=== PATIENT | male | born 1955 | race Caucasian/White ===

== ENCOUNTER 2019-12-18 12:40 | Inpatient (IN) | payer OTHER, MEDICAID ==
[~2019-12-18] VITALS: Ht 175.2 cm; Wt 101.2 kg
[2019-12-18 12:46] VITALS: BP 137/92
[2019-12-18 13:34] LABS: BASO % 0.4 % (0.0-1.0); EOS # 0.1 10*3/uL (0.0-0.4); HEMATOCRIT 41.6 % (42.0-52.0); LYMPH # 1.7 10*3/uL (1.3-4.4); MEAN CELL VOLUME 98.1 fl (80.0-94.0); MEAN CORPUSCULAR HGB 31.6 pg (27.0-31.0); MEAN CORPUSCULAR HGB CONC 32.2 g/dl (33.0-37.0); MEAN PLATELET VOLUME 9.6 fl (9.6-12.3); MONO # 0.5 10*3/uL (0.1-1.0); MONO % 6.6 % (3.0-9.0); NEUT # 4.7 10*3/uL (2.3-7.9); NEUT % 66.7 % (47.0-73.0); PLATELET COUNT AUTOMATED 261 10*3/uL (130-400); RED BLOOD COUNT 4.24 10*6/uL (4.50-5.90); RED CELL DISTRI WIDTH 13.3 % (0-14.5)
[2019-12-18 13:49] LABS: ALBUMIN 3.5 gm/dl (3.1-4.5); ALKALINE PHOSPHATASE 99 U/L (45-117); BUN 21 mg/dl (7-24); CHLORIDE 105 mmol/L (98-107); CREATININE 1.06 mg/dL (0.70-1.30); POTASSIUM 3.9 mmol/L (3.5-5.1); SGOT/AST 29 IU/L (3-35); SGPT/ALT 53 U/L (12-78); SODIUM 140 mmol/L (136-145); TOTAL PROTEIN 7.9 gm/dL (6.4-8.2)
[2019-12-18 13:57] LABS: ACETAMINOPHEN (TYLENOL) < 5.0 ug/ml (10-30); ETHYL ALCOHOL < 3.0 mg/dl (<3)
--- NOTE | 2019-12-18 15:47 | NUR ---
PT PROMPTED FOR URINE AND PROVIDED WITH URINAL. PT UNABLE TO URINATE AT THIS TIME.
--- NOTE | 2019-12-18 16:00 | NUR ---
PT AGAIN PROMPTED FOR URINE BUT IS UNABLE TO UNDERSTAND OR COOPERATE. PT WILL BE STRAIGHT CATHED FOR URINE.
[2019-12-18 16:23] LABS: BILIRUBIN NEGATIVE; BLOOD NEGATIVE (NEGATIVE); CLARITY CLEAR (CLEAR); COLOR YELLOW (YELLOW); GLUCOSE NEGATIVE; KETONE TRACE; LEUKO ESTERASE TRACE (NEGATIVE); NITRITE NEGATIVE (NEGATIVE); SPECIFIC GRAVITY > 1.030 (1.001-1.030)
[2019-12-18 16:27] LABS: BACTERIA TRACE; MUCOUS TRACE; RBC 0-2 rbc/hpf (0-2); URINE AMPHETAMINES < 1000 (1000ng/ml); URINE BARBITURATES < 200 (200ng/ml); URINE BENZODIAZEPINES < 200 (200ng/ml); URINE CANNABINOIDS (THC) < 50 (50ng/ml); URINE COCAINE < 300 (300ng/ml); URINE METHADONE < 300 (300ng/ml); URINE OPIATES < 300 (300ng/ml)
[2019-12-18 16:28] LABS: URINE PHENCYCLIDINE < 25 (25ng/ml)
--- NOTE | 2019-12-18 16:35 | NUR ---
PT IN CT AT THIS TIME.
--- NOTE | 2019-12-18 16:40 | NUR ---
CT REQUESTING HELP FOR PT IN CT.
--- NOTE | 2019-12-18 16:47 | NUR ---
CT IS BEING CANCELLED. PT UNABLE TO COOPERATE IN CT. UNABLE TO REMAIN LYING DOWN DUE TO CONFUSION. I SPOKE WITH RN FROM [facility] WHO REPORTS SHE WILL CONTACT DR. BERRY.
--- NOTE | 2019-12-18 16:49 | NUR ---
PT IS BEING PINK SLIPPED.
[2019-12-18] MEDS ORDERED: PACERONE200 MG PO (17:10)
[2019-12-18] MEDS ORDERED: ATORVASTATIN CA80 M1 PO (17:12)
[2019-12-18] MEDS ORDERED: Catapres-Tts 20.2 MG PO (17:13)
[2019-12-18] MEDS ORDERED: DIGOX125 MCG PO (17:14)
[2019-12-18] MEDS ORDERED: ASPIRIN ADULT L81 M1 PO (17:15)
[2019-12-18] MEDS ORDERED: EXELON1 EACH T (17:15)
[2019-12-18] MEDS ORDERED: NATURE'S BLEND F1 MG PO (17:16)
[2019-12-18] MEDS ORDERED: METOPROLOL TART50 M1 PO (17:16)
[2019-12-18] MEDS ORDERED: VENLAFAXINE75 M1 PO (17:17)
[2019-12-18] MEDS ORDERED: VITAMIN B-121000 MC2 PO (17:19)
[2019-12-18] MEDS ORDERED: ZYPREXA10 M1 PO (17:19)
[2019-12-18] MEDS ORDERED: ATIVAN0.5 MG PO (17:21)
[2019-12-18] MEDS ORDERED: DEPAKOTE SPRIN125 MG PO (17:23)
[2019-12-18] MEDS ORDERED: BISACODYL5 MG PO (17:24)
[2019-12-18] MEDS ORDERED: MILK OF MA400 MG/5 M PO (17:25)
--- NOTE | 2019-12-18 17:41 | NUR ---
PT TAKEN TO [facility].
[2019-12-18 17:49] VITALS: BP 154/99
[2019-12-18 17:52] VITALS: BP 154/99
--- NOTE | 2019-12-18 18:01 | NUR ---
NERY GARRETT a 64 year old M admitted via wheel chair from the EMERGENCY ROOM as a PINK SLIP. Arrived on unit at 1738 . ALLERGIES: NKA . Vital signs are: [id number] 154/99. The client IS UNABLE TO sign the following forms D/T COGNITION: Authorization For The Release of Medical Information, Clothing List, Consent to Voluntary Admission and Hospitalization, Consent and Release Forms/Receipt of Rights, Acknowledgement of Advance Directive Information, Behavioral Health Consent Form, and Informed Consent of Medications. Admitted under the services of Dr. JAMAL KNOTT,[facility]. A search was conducted and hazardous articles were removed. Client was oriented to the unit. FRANKI KRUEGER PT ALERT TO SELF ONLY, CONFUSION AND SHORT TERM MEMORY DEFICITS NOTED PER PT BASELINE. PT UNABLE TO PARTICIPATE IN ADMISSION ASSESSMENT, GERIATRIC DEPRESSION SCREENING OR U ADMISSION D/T COGNITION. PT SPEECH IN NONSENSICAL. PT IS UNABLE TO FOLLOW SIMPLE INSTRUCTIONS. PT AMBULATORY THROUGHOUT UNIT, GAIT STEADY. PT REFUSED SKIN ASSESSMENT, UNCOOPERATIVE WITH ASSESSMENT.
--- NOTE | 2019-12-18 18:10 | NUR ---
SPOKE WITH DR CLEMENT RE: MEDICAL MANAGEMENT CONSULT NEEDED PER DR NIELSEN CONSULT UNDER DR. HSU.
[2019-12-18 20:05] VITALS: BP 141/94
--- NOTE | 2019-12-18 20:47 | NUR ---
MEDICAL STUDENT PADMA VIVAR, ON UNIT TO SEE PT FOR MEDICAL CONSULT. STATED HE WOULD UPDATE DR LANDA
--- NOTE | 2019-12-18 21:19 | NUR ---
AND MEDICAL STUDENT PADMA VIVRA ON UNIT TO SEE PATIENT AT THIS TIME. UPDATE PROVIDED.
--- NOTE | 2019-12-18 23:15 | NUR ---
P-CONFUSION I-PROVIDE 1:1 WITH THERAPEUTIC INTERVENTIONS. REORIENT AND PRESENT REALITY. ENCOURAGE MEDICATION COMPLIANCE AND EDUCATE. MONITOR SLEEP. R- PT ALERT TO SELF AT TIMES BUT OTHERWISE APPEARS GROSSLY CONFUSED. PT'S SPEECH IS NONSENSICAL/WORD SALAD WITH FOI IN REGARDS TO "DOORS". NO EXIT SEEKING BEHAVIORS NOTED AT THIS TIME. PT REQUIRES MUCH ENCOURAGEMENT TO TAKE MEDICATIONS WHEN CRUSHED IN PUDDING, REFUSED HS DOSE OF LIPITOR. PT ALSO REFUSED A PRN TYLENOL DESPITE TELLING THIS RN HIS "BACK THROTTLE HURT" WHILE HOLDING HIS LOWER BACK WHEN WALKING. PT UNABLE TO FOLLOW SIMPLE COMMANDS AND UNCOOPERATIVE/REFUSES ANY TYPE OF HOC. NO AGITATION OR AGGRESSION NOTED AT THIS TIME. PT WANDERED AROUND UNIT UNTIL TAKING HIMSELF TO BED, GAIT STEADY. INCONTINENT/CONTINENT OF BOWEL AND BLADDER. PT RESTING QUIETLY WITH HIS EYES CLOSED, RESPIRATIONS EASY AND REGULAR, NO DISTRESS NOTED. P-CONTINUE TO MONITOR MOOD AND BEHAVIORS. MAINTAIN Q 15 MIN CHECKS AND PRN FOR SAFETY.
--- NOTE | 2019-12-19 05:34 | NUR ---
PATIENT OBSERVED ON Q 15 MIN CHECKS TO HAVE SLEPT APPROX 8 HOURS UNINTERRUPTED. NO DISTRESS NOTED.
[2019-12-19 06:48] LABS: ALBUMIN 3.2 gm/dl (3.1-4.5); ALKALINE PHOSPHATASE 89 U/L (45-117); BUN 18 mg/dl (7-24); CHLORIDE 105 mmol/L (98-107); CHOLESTEROL 198 mg/dL (<200); CREATININE 0.94 mg/dL (0.70-1.30); HDL CHOLESTEROL 26 mg/dl (40-60); LDL CHOLESTEROL 148 mg/dL (9-159); POTASSIUM 3.8 mmol/L (3.5-5.1); SGOT/AST 15 IU/L (3-35); SGPT/ALT 41 U/L (12-78); SODIUM 139 mmol/L (136-145); TOTAL PROTEIN 6.9 gm/dL (6.4-8.2); TRIGLYCERIDES 120 mg/dl (<150); VLDL CHOLESTEROL 24 mg/dL (6-40)
[2019-12-19 06:56] LABS: BASO % 0.4 % (0.0-1.0); EOS # 0.1 10*3/uL (0.0-0.4); HEMATOCRIT 37.8 % (42.0-52.0); LYMPH # 1.9 10*3/uL (1.3-4.4); LYMPH % 37.3 % (27.0-41.0); MEAN CELL VOLUME 97.2 fl (80.0-94.0); MEAN CORPUSCULAR HGB 31.4 pg (27.0-31.0); MEAN CORPUSCULAR HGB CONC 32.3 g/dl (33.0-37.0); MEAN PLATELET VOLUME 9.8 fl (9.6-12.3); MONO # 0.4 10*3/uL (0.1-1.0); MONO % 7.9 % (3.0-9.0); NEUT # 2.7 10*3/uL (2.3-7.9); NEUT % 52.2 % (47.0-73.0); PLATELET COUNT AUTOMATED 253 10*3/uL (130-400); RED BLOOD COUNT 3.89 10*6/uL (4.50-5.90); RED CELL DISTRI WIDTH 13.2 % (0-14.5); WHITE BLOOD COUNT 5.1 10*3/uL (4.8-10.8)
[2019-12-19 06:58] LABS: VALPROIC ACID (DEPAKENE) 40.7 ug/ml (50-100)
[2019-12-19 07:54] LABS: VITAMIN D, 25-HYDROXY 18.2 ng/mL (30-100)
[2019-12-19 07:57] VITALS: BP 163/87
--- NOTE | 2019-12-19 08:30 | NUR ---
Treatment Plan meeting was held this a.m. with Dr. Paez via telephone, FRIEND OF THE COURT Mar RN, AT, EXCEL VBA DEVELOPER-S and Train Gate Attendant in attendance. Plan for discharge at the end of next week. Pt. came to [facility] from [place]. Will reach out to facility today to discuss discharge planning.
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
--- NOTE | 2019-12-19 10:43 | NUR ---
DR HSU ON UNIT TO ASSESS PATIENT, UPDATE PROVIDED.
--- NOTE | 2019-12-19 11:46 | NUR ---
AM GROUP PT DID NOT ATTEND MORNING GROUP THERAPY. PT WAS IN BED RESTING. UNABLE TO ASSESS PT AT THIS TIME, WILL ATTEMPT TOMORROW MORNING.
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
--- NOTE | 2019-12-19 15:33 | NUR ---
PATIENT HAS BEEN ASLEEP IN BED ALL DAY. PATIENT REFUSES TO GET UP, REFUSES TO TAKE HIS MEDICATIONS AND REFUSES TO PARTICIPATE IN AN ASSESSMENT. WILL REATTEMPT.
--- NOTE | 2019-12-19 15:58 | NUR ---
PM GROUP PT DID NOT ATTEND AFTERNOON GROUP THERAPY. PT WAS IN BED RESTING.
--- NOTE | 2019-12-19 22:04 | NUR ---
P-CONFUSION I-PROVIDE 1:1 WITH THERAPEUTIC INTERVENTIONS. REORIENT AND PRESENT REALITY. ENCOURAGE MEDICATION COMPLIANCE AND EDUCATE. MONITOR SLEEP. R- PT INTERMITTENTLY ALERT TO SELF BUT OTHERWISE APPEARS GROSSLY CONFUSED. PT ISOLATIVE TO ROOM AND BED SINCE BEGINNING OF SHIFT. PT REFUSED TO PARTICIPATE IN ASSESSMENT AND ALSO REFUSED HS SKIN CHECK AND BLOOD PRESSURE. PT'S SPEECH REMAINS NONSENSICAL/WORD SALAD. NO EXIT SEEKING BEHAVIORS NOTED AT THIS TIME. PT REQUIRES MUCH ENCOURAGEMENT TO TAKE MEDICATIONS WHEN CRUSHED IN PUDDING, UNABLE TO EDUCATE DUE TO COGNITION. PT UNABLE TO FOLLOW SIMPLE COMMANDS WHEN PROVIDED BY STAFF, REFUSES HOC. NO AGITATION OR AGGRESSION NOTED AT THIS TIME. PT AMBULATORY WITH A STEADY GAIT, CONTINENT/INCONTINENT OF BOWEL AND BLADDER. PT RESTING QUIETLY WITH HIS EYES CLOSED, RESPIRATIONS EASY AND REGULAR, NO DISTRESS NOTED. P-CONTINUE TO MONITOR MOOD AND BEHAVIORS. MAINTAIN Q 15 MIN CHECKS AND PRN FOR SAFETY.
--- NOTE | 2019-12-20 05:37 | NUR ---
PATIENT OBSERVED ON Q 15 MIN CHECKS TO HAVE SLEPT APPROX 11 HOURS THIS SHIFT, WITH X2 BRIEF AWAKENINGS TO USE THE RESTROOM. NO DISTRESS NOTED.
--- NOTE | 2019-12-20 05:54 | NUR ---
24 HOUR CHART CHECK COMPLETED.
--- NOTE | 2019-12-20 06:52 | NUR ---
PATIENT CONTINUES TO REFUSE HOC THIS AM, UNRECEPTIVE TO REDIRECTION OR EDUCATION AT THIS TIME.
[2019-12-20 07:53] VITALS: BP 155/79
--- NOTE | 2019-12-20 09:06 | NUR ---
SALIMA BETANCOURT ON UNIT TO ASSESS PATIENT, UPDATE PROVIDED.
--- NOTE | 2019-12-20 09:15 | NUR ---
PATIENT REFUSES CARE. PATIENT REFUSES MEDICATION. PATIENT IS CONFUSED AND APPEARS TO BE PARANOID WHEN STAFF WALKED AROUND HIS ROOM. PATIENT HAS ALSO REFUSED ASSESSMENTS. WILL REATTEMPT.
--- NOTE | 2019-12-20 10:30 | NUR ---
Treatment Plan meeting was held this a.m. with Dr. Paez, RN, AT and Photocopy Operator. Plan for discharge Next Week. Pt. will return to [place]. Updates have been faxed. Facility is looking into alternate placement for pt. due to behaviors.
--- NOTE | 2019-12-20 11:46 | NUR ---
AM GROUP PT DID NOT ATTEND MORNING GROUP THERAPY. PT WAS IN BED RESTING.
--- NOTE | 2019-12-20 13:00 | NUR ---
PATIENT CONTINUES TO REFUSE CARE, MEDS AND ASSESSMENTS, FOOD AND DRINK. PATIENT REPEATEDLY STATES "NO THANK YOU". WILL CONTINUE TO ENCOURAGE PO INTAKES AND MED COMPLIANCE.
--- NOTE | 2019-12-20 15:00 | NUR ---
PATIENT STILL IN BED. PATIENT HAS NOT GOTTEN OUT OF BED OTHER THAN TO USE THE RESTROOM TODAY. PATIENT HAS NOT DRANK OR EATEN TODAY. PATIENT CONTINUES TO REFUSE FODO/FLUIDS, MEDICATIONS AND ASSESSMENTS. WILL REATTEMPT.
--- NOTE | 2019-12-20 15:47 | NUR ---
PM GROUP PT DID NOT ATTEND AFTERNOON GROUP THERAPY. PT WAS IN BED RESTING.
--- NOTE | 2019-12-20 23:35 | NUR ---
Patient alert to person only with confusion noted. Patient refusing to interact and refused any assessments to be done. Patient seems paranoid with staff coming near patient. Patient refused HS medications. Will reevaluate later in the shift. Q 15 minute safety checks continued and maintained. See [facility] flowsheet for further documentation.
--- NOTE | 2019-12-21 05:23 | NUR ---
Patient slept approx. 4 hours with a few awakenings. Q 15 minute safety checks continued and maintained.
--- NOTE | 2019-12-21 07:43 | NUR ---
Patient resting quietly with no c/o discomfort. Respirations easy and regular. Pt refuses to allow vital signs to be assessed despite multiple attempts/education. ANTONIO BLACK
--- NOTE | 2019-12-21 08:30 | NUR ---
Treatment Plan meeting was held this a.m. with Dr. Paez via telephone, NOLAN Manuel RN, STOCK PLAN ADMINISTRATOR-S and Mop Maker in attendance. Plan for discharge Next week. Pt. will return to [place] at discharge at this point. Facility has been unsuccessful at securing alternate Placement.
--- NOTE | 2019-12-21 12:15 | NUR ---
SALIMA BETANCOURT NP ON UNIT TO ASSESS PT.
--- NOTE | 2019-12-21 14:13 | NUR ---
Clinical Updates sent to [facility] attn: Ruth. Spoke with Velma Javier Clinical Liason via telephone, Provided with updates and discharge plans for next week.
--- NOTE | 2019-12-21 16:30 | NUR ---
Shift chart check completed.
--- NOTE | 2019-12-21 18:00 | NUR ---
P: ISOLATIVE, MUTE WITH FLAT AFFECT, HOPELESS/HELPLESS, POOR APPETITE, CONFUSION WITH POOR MEMORY DEFICITS. I: ONE ON ONE FOR EMOTIONAL SUPPORT, TALKING TO IN QUIET ENVIRONMENT IN ROOM, ENCOURAGE MEAL INTAKES. R: MEAL INTAKES EFFECTIVE. PATIENT ASSIST WITH MEALS, ONE ASSIST IN ROOM. PATIENT ATE 100% OF MEALS WITH GOOD INTAKES. PATIENT CONTINUES TO BE ISOLATIVE AND REFUSES TO LEAVE ROOM, REPOSITIONS SELF FREQUENTLY IN BED. PATIENT ALLOWED NURSE TO ASSESS VITAL SIGNS AND GIVE PARTIAL BED BATH. MEDICATION COMPLAINT. Q 15 MINUTE SAFETY CHECKS MAINTAINED. 2 PERSON ASSIST WITH ACTIVITIES OF DAILY LIVING DUE TO PAST AGGRESSION. CONTINENT AND INCONTINENT OF BOWEL AND BLADDER. ONE ASSIST FOR MEALS, IMPROVEMENT NOTED WITH MEAL INTAKES. P: CONTINUE TO MONITOR MOOD, FOR AGGRESSION, MEAL INTAKES AND MEDICATION COMPLAINCE. PROVIDE ONE ON ONE, REDIRECTION/ORIENTTION NEEDED.
[2019-12-21 20:00] VITALS: BP 115/67
--- NOTE | 2019-12-21 21:45 | NUR ---
Patient alert to person only with confusion noted. Patient refusing to interact and refused any assessments to be done. Patient isolative to his room this evening. Patient refused HS medications. Will reevaluate later in the shift. Q 15 minute safety checks continued and maintained. See [facility] flowsheet for further documentation.
--- NOTE | 2019-12-22 04:45 | NUR ---
Patient got out of bed and walked out of his room and walked across the hallway into another patient's room,a female's room. Nursing staffed attempted to redirect patient back to his room but was unsuccessful. Patient laid down in empty bed in the female patient's room. Nursing staff attempted multiple times to talk with patient in order to redirect him back to his room but patient answered with non sensical words and also word salad. Patient was constantly pointing at female patient and saying non sensical words and staring at female patient. Nursing staff stayed with this patient while another staff member switched his bed out of his room and moved him while he was in the empty bed over to his own room. The floor in patient's room had to be cleaned due to urine all over floor in room. Will continue to monitor moods/behaviors.
--- NOTE | 2019-12-22 05:38 | NUR ---
Patient slept approx. 8 hours with a few awakenings throughout shift. Q 15 minute safety checks continued and maintained.
--- NOTE | 2019-12-22 08:40 | NUR ---
PT REFUSED AM VITALS X MULTIPLE ATTEMPTS.
[2019-12-22 10:22] VITALS: BP 121/56
--- NOTE | 2019-12-22 11:45 | NUR ---
NASAL SWAB COLLECTED FOR COVID 19, TOLERATED WELL AND SENT TO LAB.
--- NOTE | 2019-12-22 12:30 | NUR ---
P: CONFUSION, PSYCHOMOTOR RETARDATION I: ONE ON ONE IN QUIET ENVIRONMENT, CHANGE OF ENVIROMENT AND REDIRECTION. R: EFFECTIVE. PATIENT IS ALERT TO SELF WITH CONFUSION. LONG/SHORT TERM MEMORY DEIFICTS. NO VOICE STATEMENT OF HI/SI OR PAIN, NO RESPONSE TO INTERNAL STIMULI OBSERVED. PATIENT OUT OF ROOM TODAY ASSISTED TO QUIET ROOM TO EAT BREAKFAST THIS MORNING. PATIENT REFUSED TO EAT OR DRINK WITH MULITPLE ATTEMPTS. PATIENT RECIEVED INVEGA SUSTENNA 234MG IM TO RIGHT DELTOID WITH NO RESPONSE/REACTION NOTED, TOLERATED WELL. AT LUNCH PATIENT AT FIRST REFUSED MEAL. PATIENT STOOD UP OUT OF NITHYA CHAIR WITH ASSISTANCE. PATIENT'S ROOM WAS CHANGED TO 309. PATIENT WALKED DOWN AMARO WITH 2 STAFF ASSIST THEN TO ROOM. PATIENT SAT IN CHAIR AND 1 PERSON ASSIST WITH MEALS. PATIENT TOOK MORNING MEDICATIONS. INTAKE WAS 100% WITH 720CC FLUIDS. PATIENT CONTINUES TO BE 1-2 PERSON ASSIST WITH ACTIVITIES OF DAILY LIVING, INCONTINENT OF BLADDER. MEDICATION COMPLAINT. Q 15 MINUTE SAFETY CHECKS MAINTAINED. P: CONTINUE TO MONITOR FOR EXIT SEEKING BEHAVIORS AND AGGRESSION. PROVIDE ONE ON ONE, REDIRECTION, ENCOURAGEMENT OF INTAKES AND MEDICINE.
--- NOTE | 2019-12-22 19:50 | NUR ---
NOTIFIED YEIMI WEINSTEIN NP OF INCREASED RIGHT ARM TREMORS. CLIENT APPEARS TO HAVE NO KNOWLEDGE OF THEM. REMAINS MUTE WHEN SPOKEN TO. ORDERS TO CHANGE DEPAKOTE TO SPRINKLES AND GIVE COGENTIN 2MG IM NOW.
--- NOTE | 2019-12-22 20:28 | NUR ---
CLIENT REFUSES ALL PO MEDICATIONS AT THIS TIME. WILL CONTINUE TO TRY TO GET HIM TO TAKE THEM COGENTIN 2MG IM GIVEN RT DELTOID. TOLERATED WELL.
--- NOTE | 2019-12-22 21:27 | NUR ---
CONTINUES TO SPIT OUT ANY MEDICATION GIVEN. REMAINS MUTE EXCEPT TO OCCATIONALLY COUNT 1,2 WHAT
--- NOTE | 2019-12-22 22:14 | NUR ---
OFFERED TO TAKE CLIENT TO BED. CLIENT APPEARS TO LOOK STRAIGHT THROUGH ME. DUE TO AGGRESSIVE OUTBURSTS WILL NOT PUSH CLIENT AND AWAIT HIM TO STAND UP
--- NOTE | 2019-12-23 01:50 | NUR ---
REMAINS AWAKE IN DININGROOM. NO RESPONCE WHEN ASKED IF HE WOULD LIKE TO LAY DOWN. WILL CONTINUE TO MONITOR
--- NOTE | 2019-12-23 06:29 | NUR ---
HAS NOT SLEPT ALL NIGHT. MUTE TO ALL QUESTIONS ASKED OF HIM. COLOR PALE SKIN COOL TO TOUCH. DECREASE TREMORS NOTED IN UPPER BODY.
[2019-12-23 08:00] VITALS: BP 97/48
--- NOTE | 2019-12-23 09:37 | NUR ---
P: WITHDRAWN, MUTE WTIH FLAT AFFECT. I: ONE ON ONE AND REORIENTATION/REDIRECTION PROVIDED R: PATIENT REMAINS MUTE WHEN CONVERSATING WITH PATIENT. PATIENT AT 50% OF MEAL WITH 480CC INTAKES. PATIENT REMAINS SITTING IN DINING ROOM CHAIR FROM LAST NIGHT, MAKE FREQUENT REPOSITION, WILL STAND UP THEN SIT BACK DOWN. PATIENT IS ALERT TO SELF AND HANDS ON CARE WITH CONFUSION. LONG/SHORT TERM MEMORY DEFICITS. NO VOICED STATEMENTS OF HI/SI OR PAIN. NO RESPONSE TO INTERNAL STIMULI OBSERVED. MEDICATION COMPLAINT. Q 15 MINUTE SAFETY CHECKS PER POLICY. 1-2 PERSON ASSIST WITH ACTIVITIES OF DAILY LIVING, CONTINENT/INCONTINENT OF BOWEL AND BLADDER. SET UP FOR MEALS, INTAKES ARE GOOD SO FAR TODAY WITH ONE ASSIST. NO AGGRESSION OBSERVED. P: CONTINUE TO MONITOR FOR MOOD, AGGRESSION. MEDICATION COMPLAINCE AND MEAL INTAKES. PROVIDE ONE ON ONE FOR EMOTIONAL SUPPORT, REDIRECTION/ORIENTATION NEEDED.
[2019-12-23 20:00] VITALS: BP 136/69
--- NOTE | 2019-12-23 20:20 | NUR ---
DRANK 3/4 OF MILK SHAKE WITH MEDICATIONS. INCONTINENT OF LARGE AMOUNT URINE. CLEANED UP AND BEDDING CHANGED..SLIGHTLY MORE COOPERATIVE AT THIS TIME. STARTED TO GET AGGRESSIVE BUT STOPPED WHEN REDIRECTED. MOSTLY MUTE DURING ASSESSMENT. WILL CONTINUE TO MONITOR FOR CHANGES IN MOOD/BEHAVIOR AND Q15 MIN AND PRN FOR SAFETY
--- NOTE | 2019-12-24 03:40 | NUR ---
24 HR chart check completed.
--- NOTE | 2019-12-24 06:23 | NUR ---
SLEPT WELL PAST 2200PM. REFUSED TO ALLOW STAFF TO TURN HIM
[2019-12-24 08:00] VITALS: BP 128/79
--- NOTE | 2019-12-24 08:30 | NUR ---
DR. BOURNE ON UNIT TO ASSESS PATIENT.
--- NOTE | 2019-12-24 10:47 | NUR ---
Treatment Plan meeting was held this a.m. with Dr. Paez, NOLAN Manuel, RN, AT, FRIT BURNER-S and Advocacy Director in attendance. Plan for discharge at the end of the week. Pt. will return to [place] at discharge.
--- NOTE | 2019-12-24 11:19 | NUR ---
Clinical Updates faxed to [facility] Attn: Ruth [phone].
--- NOTE | 2019-12-24 11:38 | NUR ---
DR. HINKLE NOTIFIED OF PODIATRY CONSULT FOR NAIL CARE.
--- NOTE | 2019-12-24 11:49 | NUR ---
PATIENT ASSISTED OUT OF BED VIA ROBERT LIFT WITH 3 ASSIST. OLAF CARE PROVIDED. PATIENT MUTE, WITH EYE CLOSED, COOPERATIVE WITH HANDS ON CARE AND ABLE TO DO COMPLETE SKIN ASSESSMENT. LEFT ANKLE AREA 1.0X1.0X0, NOT OPEN, INTACT, BLACK IN COLOR, NO COMPLAINTS OF PAIN. HERMILA AND CORINA FROM WOUND CARE NOTIFIED. CORINA CAME TO UNIT TO ASSESSES THE AREA. DIRECTOR OF MARKET ANALYSIS, CADDIE NOTIFIED. LEFT MESSAGE FOR DAUGHTER TO CALL BACK. DR. KERNS NOTIFIED OF AREA AND FOR TREATMENT ORDERS.
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
--- NOTE | 2019-12-24 15:33 | NUR ---
PM GROUP PT DID NOT ATTEND AFTERNOON GROUP THERAPY. PT WAS RESTING IN A NITHYA CHAIR IN FRONT OF NURSES STATION.
--- NOTE | 2019-12-24 18:38 | NUR ---
Shift chart check completed.
--- NOTE | 2019-12-24 19:50 | NUR ---
24 HR chart check completed.
[2019-12-24 20:00] VITALS: BP 112/67
[2019-12-24 21:40] VITALS: BP 112/67
--- NOTE | 2019-12-24 21:48 | NUR ---
PT REFUSED TO HAVE PULSE OXIMETRY TAKEN.
--- NOTE | 2019-12-24 21:59 | NUR ---
P-CONFUSED, IRRITABLE WITH HOC, SELECTIVELY MUTE. I-REDIRECTED, OFFERED TOILETING, ASSITED TO BED. R-RESISTANT WITH INTERVENTIONS. ACCEPTED ASSITANCE TO BED. ALERT TO SELF. REFUSED MEDIATIONS. REFUSED SNACK. P-WILL CONTINUE TO REORIENT, REDIRECT AND ASSIST WITH ADLS NEEDED. WILL CONTINUE TO ENCOURAGE MEDICATION COMPLIANCE. WILL MONITOR MOODS AND BEHAVIORS.
--- NOTE | 2019-12-25 05:07 | NUR ---
PT SLEPT 5 HOURS WITH INTERMITTENT AWAKENINGS.
--- NOTE | 2019-12-25 06:00 | NUR ---
Patient out of bed and walking down hallway slightly unsteady gait. Staff following patient and attempting to redirect patient about safety. Patient saying "Fuck off,you piece of shit." to staff multiple times. Patient continued to walk down hallway to double doors ignoring staff's redirection. Security notified and 2 security guards came and assisted patient to [facility]. Patient resistive with staff and security. Staff managed to change incontinent brief with 5 staff assisting including security.
[2019-12-25 07:48] VITALS: BP 132/98
--- NOTE | 2019-12-25 08:30 | NUR ---
Treatment Plan meeting was held this a.m. with Dr. Paez via telephone, MILLINERY BLOCKER Mar, RN, AT, PARKING OFFICER-S and Drill Press Set Up Operator Radial in attendance. Plan for discharge Next Week. Pt. will return to [place].
--- NOTE | 2019-12-25 08:30 | NUR ---
DR BOURNE ON UNIT TO ASSESS PATIENT, UPDATE PROVIDED.
--- NOTE | 2019-12-25 11:41 | NUR ---
AM GROUP PT WAS PRESENT FOR MORNING GROUP THERAPY SITTING UPRIGHT IN A NITHYA CHAIR WITH A MAGAZINE ON THE TRAY. PT EYES WERE CLOSED AND APPEARED TO BE SLEEPING. PT WAS NOTED TO BE SCOOTING BACKWARDS IN THE CHAIR. PT EXHIBITED NO ADVERSE BEHAVIORS WHILE IN GROUP
--- NOTE | 2019-12-25 12:59 | NUR ---
PATIENT RECIEVED INVEGA SUSTENNA 156MG IM IN RIGHT DELTOID.
--- NOTE | 2019-12-25 14:26 | NUR ---
PHYSICAL THERAPY Physical Therapy evaluation completed on 3N with full evaluation to follow. Moderate complexity skilled PT evaluation per chart review and evaluation, [address]. Recommend physical therapy per plan of care and return to [facility] upon discharge. Thank you for this referral. Elizabeth Downey,PT,DPT
--- NOTE | 2019-12-25 14:26 | NUR ---
Occupational Therapy evaluation completed on three with full evaluation to follow. Recommend occupational therapy per plan of care and return to [facility] will follow-up OT as indicated upon discharge. Thank you for this referral. Mena Domingo, OTR/L
--- NOTE | 2019-12-25 14:48 | NUR ---
DR HINKLE, PODIATRY ON UNIT TO CUT PATIENTS TOENAILS.
--- NOTE | 2019-12-25 15:34 | NUR ---
Shift chart check completed.
--- NOTE | 2019-12-25 15:37 | NUR ---
PM GROUP PT DID NOT ATTEND AFTERNOON GROUP THERAPY. PT WAS IN BED RESTING.
--- NOTE | 2019-12-25 18:47 | NUR ---
P: CONFUSION, ISOLATIVE/WITHDRAWN AND MUTE I: ONE ON ONE WHILE PROVIDING CARE, ASSIST PATIENT INTO GROUP TO PARTICIPATE, ENCOURAGE MEAL INTAKE AND MEDICATION COMPLAINCE. R: INEFFECTIVE. PATEINT IS SELF WITH HOC, LONG/SHORT TERM MEMORY DEFICITS. NO VOICED STATEMENTS OF HI/SI OR PAIN. NO RESPONSE TO INTERNAL STIMULI. NO AGGRESSION THIS SHIFT. Q 15MINUTE SAFETY CHECKS. DID NOT TAKE MORNING MEDICATIONS. DID NOT PARTICIPATE IN GROUP SESSSION. 3 PERSON ASSIST WITH ADL'S, INCONTINENT OF BOWEL AND BLADDER. SET UP FOR MEALS AND ASSIST NEEDED. P: MONTIOR FOR AGGRESSION, EXIT SEEKING, MEAL INTAKES AND MEDICATION COMPLIANCE. PROVIDE ONE ON ONE, ENCOURAGE GROUP SESSION, MEAL INAKES AND MEDICATIONS.
--- NOTE | 2019-12-25 21:06 | NUR ---
24 HR chart check completed.
--- NOTE | 2019-12-25 21:40 | NUR ---
PATIENT CLIMBING OUT OF BED WITH UNSTEADY GAIT AND WEARING BILATERAL HEEL PROTECTORS WHILE AMBULATING IN HALLWAY. PATIENT UNREDIRECTABLE AT THIS TIME. PATIENT ATTEMPTING TO STRIKE OUT AND PUSHING ON NURSING STAFF IN HALLWAY ON UNIT. PATIENT ATTEMTPING TO GO IN PEERS ROOM. PATIENT USING VULGAR LANGUAGE IN HALLWAY. SECURITY ON UNIT X 2 TO HELP REDIRECT PATIENT. ALL NONPHARMACOLOGICAL INTERVENTIONS ATTEMPTED WITH UNSUCCESSFUL RESULTS. DR BERRY CALLED AND UPDATED ABOUT PATIENT BEHAVIORS. DR BERRY WITH NEW ORDER FOR ATIVAN 2MG PO OR IM Q4 PRN FOR ANXIETY. ATIVAN IM ADMINISTERED IN LEFT DELTOID. ATIVAM IM EFFECTIVE AT THIS TIME. PATIENT SITTING IN DINING AREA WATCHING TELEVISION AT THIS TIME.
--- NOTE | 2019-12-25 22:16 | NUR ---
P-AGITATED, AGGRESSIVE, CONFUSION I-REDIRECTION WITH 1:1 THERAPEUTIC INTERVENTIONS AND PRESENT REALITY. EDUCATE AND ENCOURAGE MEDICATION COMPLIANCE R-PATIENT NONCOMPLIANT WITH MEDICATON AT HS. PATIENT REFUSED NOURISHMENT AND FLUIDS AT HS. PATIENT ISOLATIVE IN DINING AREA WITH PEERS AND NURSING STAFF. PATIENT AGGRESSIVE AND AGITATED WITH NURSING STAFF. PATIENT WITH VULGAR LANGUAGE WITH NURSING STAFF.SECURITY ON UNIT X 2. ATIVAN IM ADMINISTERED WITH EFFECTIVE RESULTS. PATIENT WITH NO HALLUCINATIONS OR DELUSIONS. PATIENT WITH NO HOMICIDAL OR SUICIDAL IDEATIONS. P-CONTINUE TO ENCOURAGE MEDICATION COMPLIANCE, CONTINUE TO PRESENT REALITY, ENCOURAGE GROUP THERAPY WHILE AWAKE
--- NOTE | 2019-12-26 05:51 | NUR ---
PT SLEPT 2 HOURS UNITERRUPTED THROUGHOUT SHIFTS. Q 15 MIN CHECKS MAINTAINED.
--- NOTE | 2019-12-26 07:00 | NUR ---
OT NOTE Prior to coming to the floor spoke with nurse Lindsey and reported that therapy was coming to treat this pt. Nurse gave approval. Upon arrival pt was sitting semi reclined in the nikolas chair in the dining leger asleep. Attempted to awaken pt with verbal and tactile stimuli however pt would not stay aroused. Not appropriate for therapy at this time. Will check back at a later time/date and continue with POC as able. TONEY Ayala/Manuel
[2019-12-26 07:39] VITALS: BP 132/78
--- NOTE | 2019-12-26 07:45 | NUR ---
PHYSICAL THERAPY Patient was semi reclined in activity room Tisha chair upon therapist arrival this am and unable to respond to simple commands, including both verbal / tactile cueing. Patient not appropriate at this time for treatment and will continue per POC as able. Getachew Stallings, STATE [address]HW[address] POLICE OFFICER
--- NOTE | 2019-12-26 08:56 | NUR ---
DR BOURNE ON UNIT TO ASSESS PATIENT, UPDATE PROVIDED.
--- NOTE | 2019-12-26 10:48 | NUR ---
Treatment Plan meeting was held this a.m. with NOLAN Manuel, RN, AT, MARK-S and Amusement Machine Mechanic. Plan for discharge Next Week. Pt. will return to [place] at discharge.
--- NOTE | 2019-12-26 11:33 | NUR ---
AM GROUP PT DID NOT ATTEND MORNING GROUP THERAPY. PT WAS IN A QUIET ROOM FOR OBSERVATION.
--- NOTE | 2019-12-26 13:35 | NUR ---
PHYSICAL THERAPY Patient seen this pm for therapy visit and was sitting up in activity room Tisha chair upon therapist arrival. Patient identified by name / on wristband as patient was pretty much non verbal most of the visit. OT assistant department manager was also present this session for observation as patient performed sit to stand transfer at handrail in hallway, MIN A x 2 with B UE support. Patient tolerated < 1 minute static stand prior to ambulating SAND CONTROL WORKER/MIN, 45'x 1 to bathroom, demonstrating slow, waddling gait pattern. Patient needed v/c to widen MELVI with increased stride and increased focus on task. Patient remained in bathroom with [facility] staff for patient care and will continue per POC as tolerated. Total treatment time 16 minutes. Getachew Stallings, SELLING SPECIALIST
--- NOTE | 2019-12-26 13:38 | NUR ---
OT NOTE Upon arrival pt was sitting up in nikolas chair in dining leger agreeable to 20 minute OT session. Identified by name and date of with no complaints. Pt wheeled to hallway. Sit-stand at hallway hand rail Lisa with HH. Functional mobility from hand rails to bedroom bathroom Lisa with HH. when attempting toilet transfer pt became agitated with hands on care requiring max x3 assist for stand pivot transfer and for clothing management/hygiene due to urinary incontinence. Stand-pivot back to nikolas chair maxA x3. Pt wheeled back to dining leger with alarm on lap tray attched and MHW present. Continue POC when able. YARI Be/TONEY Tamayo/Manuel
--- NOTE | 2019-12-26 15:36 | NUR ---
PM GROUP PT WAS PRESENT FOR AFTERNOON GROUP THERAPY SITTING IN A NITHYA CHAIR SLEEPING. PT DID NOT WAKE DURING GROUP
--- NOTE | 2019-12-26 17:09 | NUR ---
P- CONFUSED. MEDICATION NONCOMPLIANT. AGGRESSIVE WITH HANDS ON CARE. MOOD APPEARS DEPRESSED, FLAT AFFECT, SELECTIVELY MUTE. I- ORIENTATION, MOOD AND BEHAVIORS ASSESSED. ASSESSED PT FOR SI/HI, INTENT OR PLAN. ASSESSED PT FOR S/S HALLUCINATIONS, PARANOIA AND/OR DELUSIONS. MEDICATIONS ADMINISTERED PER PHYSICIAN'S ORDERS. ASSISTANCE WITH ADL CARE PROVIDED NEEDED. ENCOURAGED PT TO ATTEND AND PARTICIPATE IN [facility] GROUPS AND ACTIVITIES. R- PT IS ALERT AND ORIENTED TO SELF ONLY, OTHERWISE CONFUSED. ST/LT MEMORY GAPS NOTED. RESPS EASY AND EVEN ON ROOM AIR. MOOD APPEARS DEPRESSED, FLAT AFFECT. PT IS SELECTIVELY MUTE, VERY MINIMAL VERBAL INTERACTIONS THIS SHIFT. NO VOICED SI/HI, INTENT OR PLAN. NO S/S HALLUCINATIONS NOTED. NO PARANOIA OR DELUSIONS NOTED. PT MEDICATION NONCOMPLIANT WITH AM MED PASS. OPAL UPDATED. STATED TO REATTEMPT MORNING MEDS AT LUNCH TIME. PT DID TAKE MORNING MEDS WITH LUNCH. PT BECOMES AGGRESSIVE WITH HANDS ON CARE. PT VERY DIFFICULT TO REDIRECT PT DOES NOT ENGAGE IN CONVERSATION OR FOLLOW VERBAL COMMANDS APPROPRIATELY. P- PLAN TO CONTINUE CURRENT TREATMENT, CONTINUE TO MONITOR MOOD AND BEHAVIORS, PROVIDE APPROPRIATE REORIENTATION AND REDIRECTION NEEDED. CONTINUE TO ENCOURAGE MEDICATION COMPLIANCE WELL GROUP ATTENDANCE AND PARTICIPATION.
[2019-12-26 19:35] VITALS: BP 138/81
--- NOTE | 2019-12-26 20:20 | NUR ---
MIXED MEDICATION IN SMALL VANILA/ENSURE SHAKE. DRANK ALITTLE OVER 03/31. CONTINUEING TO PROVIDE DRINKS
--- NOTE | 2019-12-26 21:20 | NUR ---
INCONTINENT OF URINE AND SMEAR BM. CLEANED UP AND CHANGED WITH ASSIST OF 4. CLIENT REFUSES TO STAND OR ASSIST.
--- NOTE | 2019-12-26 22:19 | NUR ---
REFUSES ORAL CARE
--- NOTE | 2019-12-27 00:22 | NUR ---
24 HR chart check completed.
--- NOTE | 2019-12-27 05:40 | NUR ---
SLEPT APPROX 3 HOUR. INTERMITTENT PERIODS OF RESTLESSNESS.
--- NOTE | 2019-12-27 07:39 | NUR ---
Patient resting quietly with no c/o discomfort. Respirations easy and regular. Vital signs stable. No overt distress. ANTONIO BLACK
[2019-12-27 07:50] VITALS: BP 135/79
--- NOTE | 2019-12-27 07:54 | NUR ---
OT NOTE Prior to session therapist called U and talked to nurse Shadia and got permission to treat pt. SECURITIES SUPERVISOR and nursing both present for observation only. Upon arrival pt was sitting in nikolas chair in dining leger agreeable to 15 minute OT session. Pt wheeled to hallway hand rail, sit-stand attempted requiring maxA x3 however, pt was only able to coplete 25% of transfer before sitting. Pt returned to nikolas chair, wheeled back to dining leger with alarm and tray table attached and MHW present. Throughout session pt was nonverbal with poor carry over for command follow. Continue with POC when able. YARI Be/TONEY Tamayo/Manuel
--- NOTE | 2019-12-27 08:00 | NUR ---
PHYSICAL THERAPY Patient seen this am for therapy visit and was sitting up in activity room Tisha chair upon therapist arrival. Patient identified by name / and was joined by OT employment legal assistant this session. Patient was non verbal this morning and needed multiple verbal / tactile cues to complete all task. Patient demonstrated increased difficulty following simple commands while transfering sit to stand at handrail, MAX A x 3 with B UE support. Patient unable to fully stand upright, tolerating only 10-15 seconds static stand each trial. Patient was able to keep his eyes open most of the transfer attmepts, however with only a "blank" stare. Patient returned to his Tisha chair and remained at table in activity room with body alarm, lap tray, under [facility] staff Supervision. Will continue per POC as tolerated, total treatment time 12 minutes. Getachew Stallings, DELINQUENT TAX COLLECTOR
--- NOTE | 2019-12-27 09:00 | NUR ---
Treatment Plan meeting was held this a.m. with Dr. Paez, RN, AT, EMPLOYMENT DIRECTOR-S and Early Childhood Educator Aide. Plan for discharge Next Week. Pt. will return to [place] at discharge.
--- NOTE | 2019-12-27 11:38 | NUR ---
AM GROUP PT WAS PRESENT FOR MORNING GROUP THERAPY SITTING IN A NITHYA CHAIR AT A TABLE WITH PEERS. PT WAS SLEEPING AND DID NOT WAKE DURING GROUP THERAPY.
--- NOTE | 2019-12-27 12:00 | NUR ---
Spoke with Velma Javier at [facility] who has requested an expert Eval and Competency Evaluation while here so the Facility can pursue Guardianship upon return to facility.
--- NOTE | 2019-12-27 14:52 | NUR ---
P- CONFUSED, MEDICATION NONCOMPLIANCE, SELECTIVELY MUTE I- ORIENTATION, MOOD AND BEHAVIORS ASSESSED. ASSESSED PT FOR SI/HI, INTENT OR PLAN. ASSESSED PT FOR S/S HALLUCINATIONS, PARANOIA AND/OR DELUSIONS. MEDICATIONS ADMINISTERED PER PHYSICIAN'S ORDERS. ASSISTANCE WITH ADL CARE PROVIDED NEEDED. ENCOURAGED PT TO ATTEND AND PARTICIPATE IN [facility] GROUPS AND ACTIVITIES. R- PT IS ALERT AND ORIENTED TO NAME ONLY, OTHERWISE CONFUSED WITH MEMORY GAPS APPARENT. RESPS EASY AND EVEN ON ROOM AIR. MOOD APPEARS DEPRESSED, FLAT AFFECT. PT IS SELECTIVELY MUTE. PT HAS NOT ENGAGED IN ANY CONVERSATION WITH THIS RN THIS DATE DESPITE MULITPLE ATTEMPTS, THEREFORE PYSCHIATRIC ASSESSMENT IS LIMITED. NO VOICED SI/HI. NO S/S HALLUCINATIONS, PARANOIA OR DELUSIONS. PT REFUSED ALL MEDICATIONS DESPITE MULTIPLE ATTEMPTS. FED SELF AND ATE 100% OF BREAKFAST BUT VERY LITTLE LUNCH. LESS AGGRESSION NOTED THIS DATE WITH HANDS ON CARE. NO DISTRESS NOTED. P- PLAN TO CONTINUE CURRENT TREATMENT, CONTINUE TO MONITOR MOOD AND BEHAVIORS, PROVIDE APPROPRIATE REORIENTATION AND REDIRECTION NEEDED. CONTINUE TO ENCOURAGE MEDICATION COMPLIANCE WELL GROUP ATTENDANCE AND PARTICIPATION.
--- NOTE | 2019-12-27 15:36 | NUR ---
PM GROUP PT WAS PRESENT FOR AFTERNOON GROUP THERAPY SLEEPING SITTING UPRIGHT IN A NITHYA CHAIR. PT DID NOT WAKE DURING GROUP.
--- NOTE | 2019-12-27 19:41 | NUR ---
ATTEMPTED TO FEED CLIENT MEDS IN APPLESAUCE BUT HE WOULDN'T EVEN OPEN EYES OR ACKNOWELDGE STAFF PRESENCE. REFUSING ALL PO FLUIDS. WILL ATTEMPT AGAIN BEFORE DISPOSING OF MEDS.
[2019-12-27 19:51] VITALS: BP 123/67
--- NOTE | 2019-12-27 20:33 | NUR ---
REFUSED PO MEDICATIONS IN [facility] AGAIN. REFUSING PO FLUIDS. IM HALDOL GIVEN PER ORDERS
--- NOTE | 2019-12-27 21:45 | NUR ---
RESTING QUIET IN BED. ASSISTANCE OF 3 NEEDED TO GET HIM FROM GERICHAIR TO BED. CLIENT BUCKLING KNEES WHEN STOOD. INCREASED AGGRESSION WITH OLAF-CARE. REFUSED ORAL CARE BY CLAMPING TEETH TOGETHER. INCONTINENT OF SMALL BM. CLEANED UP AND POSITION OF COMFORT.
--- NOTE | 2019-12-28 05:51 | NUR ---
SLEPT WELL PAST 2230PM. INTERMITTENT SNORING NOTED.
[2019-12-28 07:43] VITALS: BP 141/84
--- NOTE | 2019-12-28 07:45 | NUR ---
OT NOTE Prior to arrival therapist called U and talked to nurse Regan and got permission to treat pt. Attempted OT visit, however pt was sleeping and did not wake with tactile/verbal stimuli. Will check back at a later time or date. Continue with POC when able. YARI Be/TONEY Tamayo/Manuel
--- NOTE | 2019-12-28 07:55 | NUR ---
PHYSICAL THERAPY Patient was supine in bed this am when approached for therapy visit and following several minutes of attempted verbal / tactile cues, which patient did not respond to or open his eyes. Patient not appropriate at this time for treatment and will continue per POC as able. [facility] Nurse notified of patient status. Getachew Stallings, DEEPA
--- NOTE | 2019-12-28 08:15 | NUR ---
PT BED ALARM SOUNDING. MENTAL HEALTH WORKERS RESPOND IMMEDIATELY TO ROOM. PT ATTEMPTING TO GET OUT OF BED AND WALK WITH HEEL PROTECTOR BOOTS ON. PT WAS ABLE TO BE REDIRECTED, CLOTHES CHANGED AND PT BROUGHT TO DINING ROOM FOR BREAKFAST. NO AGGRESSIVE BEHAVIORS AT THIS TIME.
--- NOTE | 2019-12-28 09:29 | NUR ---
ON UNIT TO SEE PT AT THIS TIME. MADE AWARE PT REFUSING PO MEDICATIONS. REVIEWED BLOOD PRESSURE. MADE AWARE PT IS DUE FOR CLONIDINE PATCH TODAY, TO BE CHANGED WEEKLY BUT WAS NOT DONE LAST TUESDAY. STATES OK TO APPLY PATCH TODAY.
--- NOTE | 2019-12-28 10:54 | NUR ---
Spoke with Velma Javier at [place] regarding Expert Evaluation and Competency Evaluation. Velma states that she will sweet pickle maker the paperwork on Tuesday. Provided with updates and discussed discharge plans for next week. Clinical Updates faxed to facility.
--- NOTE | 2019-12-28 12:25 | NUR ---
PT REFUSED AFTERNOON ORAL DOSE OF COGENTIN. COGENTIN 1MG IM GIVEN TO LEFT DELTOID PER ORDERS. PT TOLERATED WELL.
--- NOTE | 2019-12-28 14:17 | NUR ---
P- CONFUSION, MEDICATION NONCOMPLIANCE, SELECTIVELY MUTE. I- ORIENTATION, MOOD AND BEHAVIORS ASSESSED. ASSESSED PT FOR SI/HI, INTENT OR PLAN. ASSESSED PT FOR S/S HALLUCINATIONS, PARANOIA AND/OR DELUSIONS. MEDICATIONS ADMINISTERED PER PHYSICIAN'S ORDERS. ASSISTANCE WITH ADL CARE PROVIDED NEEDED. ENCOURAGED PT TO ATTEND AND PARTICIPATE IN [facility] GROUPS AND ACTIVITIES. R- PT IS ALERT AND ORIENTED TO SELF ONLY. OTHERWISE CONFUSED. PT IS UNCOOPERATIVE WITH ASSESSMENT, SELECTIVELY MUTE AND DOES NOT ENGAGE IN CONVERSATION WITH THIS RN, THEREFORE; PSYCHIATRIC ASSESSMENT IS LIMITED. NO VOICED SI/HI, INTENT OR PLAN. NO SELF-HARMING BEHAVIORS. NO AGGRESSIVE BEHAVIORS. NO EVIDENCE OF HALLUCINATIONS NOTED THIS SHIFT. PT REFUSES PO MEDICATIONS DESPITE MULITPLE DIFFERENT ATTEMPTS. PT CLENCHES MOUTH SHUT AND REFUSES TO TAKE MEDICATIONS DESPITE BEING OFFERED AT DIFFERENT TIMES AND DIFFERENT WAYS. NO DISTRESS NOTED. P- PLAN TO CONTINUE CURRENT TREATMENT, CONTINUE TO MONITOR MOOD AND BEHAVIORS. PROVIDE APPROPRIATE REORIENTATION AND REDIRECTION NEEDED. CONTINUE TO ENOCURAGE MEDICATION COMPLIANCE WELL GROUP ATTENDANCE AND PARTICIPATION.
--- NOTE | 2019-12-28 14:39 | NUR ---
PHYSICAL THERAPY CO-SIGN I approve of the Physical Therapy notes written above. Farzana Law PT
[2019-12-28 20:00] VITALS: BP 122/70
--- NOTE | 2019-12-29 02:04 | NUR ---
P-CONFUSION I-PROVIDE 1:1 WITH THERAPEUTIC INTERVENTIONS. REORIENT AND PRESENT REALITY. ENCOURAGE MEDICATION COMPLIANCE AND EDUCATE. MONITOR SLEEP. R- PT ALERT TO SELF AT TIMES BUT OTHERWISE APPEARS GROSSLY CONFUSED. PT'S SPEECH REMAINS NONSENSICAL/WORD SALAD WITH FOI. PT ISOLATIVE TO SELF IN DINING ROOM WHILE UP IN A NITHYA CHAIR AT BEGINNING OF SHIFT, REFUSED HS SNACK DESPITE MULTIPLE ATTEMPTS AND ENCOURAGEMENT. PT ALSO REFUSED HS PO MEDICATIONS AND RECEIVED IM MEDICATIONS ORDERED, TOLERATED WELL. PT UNABLE TO FOLLOW SIMPLE COMMANDS AND BECOMES AGITATED/AGGRESSIVE WITH HOC, REQUIRES X4 ASSIST AND SECURITY DUE TO COMBATIVE BEHAVIORS. INCONTINENT/CONTINENT OF BOWEL AND BLADDER. PT UP IN NITHYA CHAIR NEAR NURSES STATION DUE TO LACK OF SAFETY AWARENESS, NO DISTRESS NOTED. P-CONTINUE TO MONITOR MOOD AND BEHAVIORS. MAINTAIN Q 15 MIN CHECKS AND PRN FOR SAFETY.
--- NOTE | 2019-12-29 05:43 | NUR ---
PATIENT OBSERVED ON Q 15 MIN CHECKS TO HAVE SLEPT APPROX 4.5 HOURS INTERRUPTED. NO DISTRESS NOTED.
--- NOTE | 2019-12-29 06:07 | NUR ---
24 HOUR CHART CHECK COMPLETED.
[2019-12-29 07:50] VITALS: BP 130/79
--- NOTE | 2019-12-29 09:10 | NUR ---
DR BOURNE ON UNIT TO ASSESS PT, UPDATE PROVIDED.
--- NOTE | 2019-12-29 10:26 | NUR ---
P: PT REFUSED AM PO MEDS, REFUSED BREAKFAST. I: PROVIDE EMOTIONAL SUPPORT AND 1:1 FOR PT TO VOICE FEELINGS, ENCOURAGE MED COMPLIANCE-UNABLE TO PROVIDE MED EDUCATION D/T COGNITION R: PT ALERT TO PERSON ONLY, CONFUSION AND SHORT TERM MEMRY DEFICITS NOTED PER BASELINE. PT CONTINUED TO REFUSE PO MEDICATIONS, RECEIVED IM COGENTIN AND THORAZINE INJECTIONS. NO HALLUCINATIONS OR DELUSIONS NOTED. NO SUICIDAL THOUGHTS OR BEHAVIORS NOTED. PT UP TO A GERICHAIR, REQUIRES 3-4 STAFF ASSIST FOR TRANSFERS AND CARE. PT INCONTINENT OF BOWEL AND BLADDER, CARE PROVIDED NEEDED. P: MONITOR PT BEHAVIORS ON Q15 MINS SAFETY CHECKS, ENCOURAGE MED COMPLIANCE, PROVIDE EMOTIONAL SUPPORT AND 1:1 FOR PT TO VOICE FEELINGS
--- NOTE | 2019-12-29 14:36 | NUR ---
MHW NOTIFIED THIS NURSE THAT PT ARMS WERE PURPLE. THIS NURSE ASSESSED PT ALONG WITH 2ND RN AND NURSING FEEDER DRIVER. ARMS ARE PURPLE WITH A WEBBED DESIGN. THIS NURSE CALLED AND ASKED DR. JOHNSON TO COME ASSESS PT. DR JOHNSON ON UNIT TO ASSESS PT, LABS AND MEDICATIONS REVIEWED WITH DR. DR HAN ON UNIT TO ASSESS PT. NEW ORDERS FOR CBC/CMP NOW. PER DRS CONTINUE TO MONITOR PT, IF AREAS WORSEN CALL.
[2019-12-29 15:33] LABS: BASO % 0.4 % (0.0-1.0); EOS # 0.1 10*3/uL (0.0-0.4); EOS % 1.4 % (1.0-4.0); HEMATOCRIT 43.2 % (42.0-52.0); LYMPH # 1.6 10*3/uL (1.3-4.4); LYMPH % 21.9 % (27.0-41.0); MEAN CELL VOLUME 96.6 fl (80.0-94.0); MEAN CORPUSCULAR HGB 31.5 pg (27.0-31.0); MEAN CORPUSCULAR HGB CONC 32.6 g/dl (33.0-37.0); MEAN PLATELET VOLUME 9.7 fl (9.6-12.3); MONO # 0.6 10*3/uL (0.1-1.0); MONO % 8.2 % (3.0-9.0); NEUT # 4.9 10*3/uL (2.3-7.9); NEUT % 67.8 % (47.0-73.0); PLATELET COUNT AUTOMATED 272 10*3/uL (130-400); RED BLOOD COUNT 4.47 10*6/uL (4.50-5.90); RED CELL DISTRI WIDTH 12.6 % (0-14.5); WHITE BLOOD COUNT 7.2 10*3/uL (4.8-10.8)
[2019-12-29 15:50] LABS: ALBUMIN 3.3 gm/dl (3.1-4.5); ALKALINE PHOSPHATASE 92 U/L (45-117); BUN 24 mg/dl (7-24); CHLORIDE 105 mmol/L (98-107); CREATININE 0.98 mg/dL (0.70-1.30); SGOT/AST 25 IU/L (3-35); SODIUM 142 mmol/L (136-145)
[2019-12-29 15:54] LABS: SGPT/ALT 31 U/L (12-78)
--- NOTE | 2019-12-29 16:28 | NUR ---
SPOKE WITH DR JOHNSON RE: PT POTASSIUM 3.0. A;SO ADVISED THAT PT HAS POOR PO INTAKE. DR QUESTIONED THE USE OF IV POTASSIUM, ADVISED THAT WE DO NOT ADMINSTER THAT ON THIS UNIT. ADVISED THAT WE CAN ATTEMPT PO AND SEE IF HE IS COMPLIANT. PER HE WILL PLACE ORDERS.
--- NOTE | 2019-12-29 17:42 | NUR ---
SPOKE WITH DR JOHNSON AT [phone] AND ADVISED THAT POTASSIUM WAS DISSOLVED IN WATER AND PT CONSUMED ABOUT HALF. PER GO AHEAD AND ORDER A BMP FOR TOMORROW. NO FURTHER ORDERS AT THIS TIME.
[2019-12-29 20:00] VITALS: BP 137/73
--- NOTE | 2019-12-29 22:27 | NUR ---
PATIENT ASSESSED WITH 2ND RN AT BEGINNING OF SHIFT. PT ALERT, CONFUSED TO ALL PER BASELINE, ISOLATIVE TO SELF. PTS SPEECH CONTINUES TO BE NONSENSICAL/WORD SALAD WITH INTERMITTENT CURSING. PURPLE DISCOLORATION REMAINS ON PATIENTS BILATERAL ARMS, EXTENDING FROM THE UPPER MIDDLE ARM DOWN TO THE HAND IN A WEBBED DESIGN. PTS TIP OF NOSE ALSO APPEARS TO HAVE A PURPLE DISCOLORATION. VITALS TAKEN AND WNL, RESPIRATIONS EASY AND REGULAR ON ROOM AIR, NO DISTRESS NOTED. PT PARTICIPATED IN SNACK THIS HS, FED SELF WITH GOOD FLUID INTAKE. MEDICATION COMPLIANT WITH ENCOURAGEMENT WHEN CRUSHED IN PEANUT BUTTER, UNABLE TO EDUCATE DUE TO COGNITION. PT WITH UNSTEADY GAIT, UTILIZES A NITHYA CHAIR WHILE OUT OF BED, ALL NEEDS ANTICIPATED BY STAFF. PT X4 ASSIST WITH HOC DUE TO COMBATIVE BEHAVIORS, INCONTINENT OF BOWEL AND BLADDER. PT CURRENTLY SITTING QUIETLY ACROSS FROM NURSES STATION AT THIS TIME, CALM. NO PHYSICAL COMPLAINTS VOICED. WILL CONTINUE TO MONITOR MOOD AND BEHAVIORS, MAINTAIN Q 15 MIN CHECKS AND PRN FOR SAFETY.
--- NOTE | 2019-12-30 06:11 | NUR ---
PATIENT AWAKE AND PROVIDED INCONTINENT CARE WITH MINIMAL DIFFICULTY THIS AM, ASSIST X4. NO COMBATIVE BEHAVIORS OBSERVED. PT THEN ASSISTED TO NITHYA CHAIR AND MOVED NEAR NURSES STATION DUE TO LACK OF SAFETY AWARENESS. PT MORE VERBAL/INTERACTIVE THIS AM, SPEECH REMAINS NONSENSICAL/WORD SALAD. PT ALERT TO SELF, CONFUSED PER BASELINE. PURPLE DISCOLORATION NOTED TO BILATERAL ARMS AND TIP OF NOSE LESS PROMINENT THIS AM. SLEPT APPROX 3 HOURS INTERRUPTED. NO DISTRESS NOTED.
[2019-12-30 07:19] LABS: BUN 23 mg/dl (7-24); CHLORIDE 103 mmol/L (98-107); POTASSIUM 3.1 mmol/L (3.5-5.1); SODIUM 139 mmol/L (136-145)
[2019-12-30 07:35] VITALS: BP 135/69
--- NOTE | 2019-12-30 09:05 | NUR ---
DR BOURNE ON UNIT TO ASSESS PATIENT, UPDATE PROVIDED.
[2019-12-30 15:22] LABS: BASO % 0.2 % (0.0-1.0); EOS # 0.1 10*3/uL (0.0-0.4); EOS % 1.1 % (1.0-4.0); HEMATOCRIT 42.2 % (42.0-52.0); LYMPH # 1.5 10*3/uL (1.3-4.4); MEAN CELL VOLUME 96.3 fl (80.0-94.0); MEAN CORPUSCULAR HGB 31.3 pg (27.0-31.0); MEAN CORPUSCULAR HGB CONC 32.5 g/dl (33.0-37.0); MEAN PLATELET VOLUME 9.8 fl (9.6-12.3); MONO # 0.6 10*3/uL (0.1-1.0); MONO % 6.9 % (3.0-9.0); NEUT # 6.6 10*3/uL (2.3-7.9); NEUT % 74.6 % (47.0-73.0); PLATELET COUNT AUTOMATED 271 10*3/uL (130-400); RED BLOOD COUNT 4.38 10*6/uL (4.50-5.90); RED CELL DISTRI WIDTH 12.8 % (0-14.5); WHITE BLOOD COUNT 8.8 10*3/uL (4.8-10.8)
[2019-12-30 15:37] LABS: ALBUMIN 3.1 gm/dl (3.1-4.5); ALKALINE PHOSPHATASE 95 U/L (45-117); BUN 23 mg/dl (7-24); CHLORIDE 103 mmol/L (98-107); CREATININE 1.12 mg/dL (0.70-1.30); POTASSIUM 3.2 mmol/L (3.5-5.1); SGOT/AST 20 IU/L (3-35); SGPT/ALT 27 U/L (12-78); SODIUM 139 mmol/L (136-145); TOTAL PROTEIN 7.6 gm/dL (6.4-8.2)
--- NOTE | 2019-12-30 16:50 | NUR ---
P: PATIENT IS AGITATED AND AGGRESSIVE, IRRITABLE AND CONFUSED. I: ONE ON ONE FOR EMOTIONAL SUPPORT, SPACE PROVIDED NEEDED. ALLOW PATIENT TO EXPRESS FEELINGS. R: INEFFECTIVE. PATIENT ALERT TO SELF ONLY. PATIENT CONFUSED. PATIENT IS AGITATED AND AGGRESSIVE WITH HANDS ON CARE. PATIENT IS A 3 PERSON ASSIST. PATIENT IS DEPENDENT WITH ACTIVITIES ON DAILY LIVING. PATIENT IS CUSSING AT STAFF. INTAKES ARE POOR WITH INADEQUATE FLUIDS. PATIENT IS IN NITHYA CHAIR. PATIENT REFUSED 1300 MEDICATION. PATIENT DID NOT PARTICIPATE IN ASSESSMENT. P: WILL CONITNUE TO MONITOR FOR BEHAVIORS/MOOD. Q15 MINUTE SAFETY CHECKS MAINTAINED. WILL ENCOURAGE MEDICATION COMPLIANCE. WILL CONTINUE TO ENCOURAGE PATIENT TO COMMUNICATE WITH STAFF.
--- NOTE | 2019-12-30 17:51 | NUR ---
SPOKE TO DR JOHNSON TO MAKE MD AWARE OF LABS. NEW ORDER FOR ONE TIME DOSE OF K-DUR ORDERED.
[2019-12-30 20:00] VITALS: BP 155/67
--- NOTE | 2019-12-30 21:10 | NUR ---
REFUSED ALL PM MEDICATIONS, FLUIDS AND SNACK. ACTIVLY HALLUCINATIONS AT THIS TIME. WILL GIVE THORAZINE IM PER ORDERS WHEN WE PUT HIM TO BED. FLIPPING STAFF OFF WHEN THEY TALK TO HIM. WILL CONTINUE TO PROVIDE EMOTIONAL SUPPORT. MONITOR FOR CHANGES IN MOOD/BEHAVIOR AND Q15 MIN AND PRN FOR SAFETY
--- NOTE | 2019-12-30 21:53 | NUR ---
HYPERVERBAL, INTERMITTENT POUNDING ON CHAIR. THORAZINE GIVEN PER ORDERS. CLIENT UNABLE TO UNDERSTAND QUESTIONS ASKED BY STAFF. GRABBING AT STAFF BUT NON THREATENING. REACHING FOR UNSEEN THINGS. OLAF AREA CLEANED UP AND DEPENDS CHANGED. WILL CONTINUE TO MONITOR FOR CHANGES IN MOOD/BEHAVIOR
--- NOTE | 2019-12-31 00:12 | NUR ---
CURRENTLY IN BED. KICKED OFF HEEL PROTECTORS
--- NOTE | 2019-12-31 04:11 | NUR ---
24 HR chart check completed.
--- NOTE | 2019-12-31 06:01 | NUR ---
SLEPT WELL PAST 2345PM. MOVED SELF IN BED. RESP EASY NON LABORED
--- NOTE | 2019-12-31 06:44 | NUR ---
ASSIST X4 TO GET DRESSED AND OUT OF BED. CLIENT TRYING TO SQUEEZE STAFFS HANDS AND BITE THEM. CONTINUALLY REPEATING YOU MTHER FERS. SPEECH CLEARER BUT WORD SALAD. UNABLE TO FOLLOW COMMANDS
[2019-12-31 06:58] LABS: BUN 22 mg/dl (7-24); CHLORIDE 108 mmol/L (98-107); CREATININE 0.86 mg/dL (0.70-1.30); SODIUM 135 mmol/L (136-145)
[2019-12-31 07:02] LABS: POTASSIUM 3.1 mmol/L (3.5-5.1)
--- NOTE | 2019-12-31 07:35 | NUR ---
PHYSICAL THERAPY Patient seen this am for therapy visit and was sitting up in conference room Tisha chair upon therapist arrival. Patient identified by name / on wristband as patient was pretty much non verbal entire treatment except for several outburst of increased agitation, dropping multiple "F" bombs. Patient attmepted several sit to stand transfers, MAX A x 2, tolerating approx 15 seconds static stand, however not quite reachaing full upright position. Patient attempted several additional standing attempts that were unsuccesful secondary to c/o of B foot pain as he yelled out. Patient barely opened his eyes this session and remained in his Tisha chair with lap tray, body alarm in conference room across from nursing station, under [facility] staff Supervision. Will continue per POC as tolerated, total treatment time 14 minutes. Getachew Stallings, MERCHANDISE MARKER
[2019-12-31 07:40] VITALS: BP 138/80
--- NOTE | 2019-12-31 07:45 | NUR ---
OT NOTE Prior to coming to the floor spoke with nurse Dillon and reported that therapy was coming to treat this pt. Nurse gave approval. Pt was seen this A.M. 1:1 for 15 minute OT session with PNEUMATIC DRUM SANDER and nursing staff present for observation only. Upon arrival pt was sitting upright in the quiet room. Pt identified by name and on wristband due to pt being non verbal with any and all questions/conversation and no eye contact made throughout session . Attempted to complete AAROM to BUE, pt tolerated 1 X 5 of shoulder flexion however then became aggitated, no other ROM completed. Pt would not respond to other request for pt to complete AROM. Pt was then taken out to the hallway where he completed one sit to stand with maxA X 2 and use of hand rail. Challenged pt's static standing tolerance needed for increased I in self care tasks and functional transfers, pt tolerated aprox 15 seconds before sitting due to becoming aggitated and stating he had B foot pain which was unrated. Attempted to complete other sit to stands however pt became aggitated with much vulgar language and flipping off therapist. No other tasks completed. Pt was left sitting upright in the quiet room in nikolas chair with lap tray on, body alarm activated, and under [facility] staff supervision. Continue with POC as able. OTNEY Ayala/Manuel
--- NOTE | 2019-12-31 08:59 | NUR ---
DR. KERNS NOTIFIED OF POTASSIUM LEVEL AT 3.1. NEW ORDER FOR K-DUR 40MEQ NOW.
--- NOTE | 2019-12-31 09:00 | NUR ---
Treatment Plan meeting was held this a.m. with Dr. Paez, NOLAN Manuel RN, MUSIC LIBRARIAN-S and Battery Charger Tester in attendance. Plan for discharge at the end of the week. Pt. is not stablized enough to discharge at this time. Dr. Paez working on Medication Changes. Pt. will return to [place] at discharge.
--- NOTE | 2019-12-31 10:57 | NUR ---
PATIENT RECIEVED VITAMIN B12 1,000MCG IN TO RIGHT DELTOID. TOLERATED WELL.
--- NOTE | 2019-12-31 11:39 | NUR ---
DR. HEMPHILL ON UNIT TO ASSESS PATIENT.
--- NOTE | 2019-12-31 15:36 | NUR ---
Shift chart check completed.
--- NOTE | 2019-12-31 19:19 | NUR ---
P: VERBAL AGGRESSION WHILE PROVIDING HANDS ON CARE, WITHDRAWN. I: ONE ON ONE, 3-4 PERSON ASSIST WITH CARE, REORIENTATION/DIRECTION NEEDED. R: SOMEWHAT EFFECTIVE. NO AGGRESSION WITH HANDS ON CARE. PATIENT AFTER CARE WAS CURSING AND FLIPPING STAFF OFF DURING CHANGING OF DEPENDS. PATIENT IS ALERT TO SELF WITH CONFUSION. MOOD IS IRRITABLE. NO VOICED STATEMENT OF HI/SI OR PAIN. NO RESPONSE TO INTERNAL STIMULI OBSERVED. 2-3 PERSON ASSIST WITH ACTIVITIES OF DAILY LIVING, INCONTINENT OF BOWEL AND BLADDER. SET UP FOR MEALS, INTAKES ARE GOOD. MEDICAITON COMPLAINT. Q 15 MINUTE SAFETY CHECKS MAINTAINED. P: CONTINUE TO MONITOR FOR AGGRESSION. PROVIDE ONE ON ONE, REDIRECTION/ORIENTATION AND ENCOURAGE MEDICATION COMPLAINCE AND BE MORE COOPERATIVE WITH HANDS ON CARE.
[2019-12-31 19:32] VITALS: BP 134/68
--- NOTE | 2019-12-31 20:41 | NUR ---
P--ANGRY, COMBATIVE, CONFUSION I--PROVIDED MEDICATIONS IN [place]. SNACKS PROVIDED, EMOTIONAL SUPPORT PROVIDED R--DRANK APPROX 1/2 OF DRINK. REFUSED SNACK, CURSING P--MONITOR FOR CHANGES IN MOOD/BEHAVIOR AND Q 15 MINS AND PRN FOR SAFETY.
--- NOTE | 2019-12-31 22:00 | NUR ---
CLIENT DRANK APPROX 1/2 OF COKE WITH MEDICATION
--- NOTE | 2020-01-01 06:39 | NUR ---
SLEPT PAST 2300PM
--- NOTE | 2020-01-01 07:05 | NUR ---
PHYSICAL THERAPY Patient seen this am for therapy visit and was sitting up in activity room Tisha chair upon therapist arrival. Patient identified by name / and was joined by OT commercial real estate assistant for observation this session. Patient presented with several bouts of disorientation, especially during gait ex as patient transfers sit to stand CGA x 1. Patient ambulated in hallway, no AD, CGA, demonstrating very "wobbly" step sequence and "mumbling" to himself as if he was looking for something. Patient would take a few steps then turn around and stop, while moving his head side to side, but when asked what he was looking for, did not verbally respond. Patient returned to his Tisha chair with lap tray, body alarm and remained in activity room under [facility] staff Supervision. Will continue per POC as tolerated, total treatment time 14 minutes. Getachew Stallings, HUMAN RESOURCES ADMIN
--- NOTE | 2020-01-01 07:07 | NUR ---
OT NOTE Prior to coming to the floor spoke with nurse Regan and reported that therapy was coming to treat this pt. Nurse gave approval. Pt was seen this A.M. 1:1 for 15 minute OT session with BACTERIOLOGIST DAIRY and nursing staff present for observation only. Upon arrival pt was sitting upright in the nikolas chair in the dining leger. Pt identified by name and on wristband and had no complaints at this time. Pt was taken out to the hallway where he completed sit to stand transfer from chair level with CGA hand held. Challenged pt's static standing tolerance needed for increased I in self care tasks and functional transfers. Pt was able to tolerate aprox 60 seconds before sitting due to fatigue. Pt completed functional mobility back into the dining leger with CGA hand held with bouts of unsteady stance that required Lisa to correct. Pt was left sitting upright in the nikolas chair in the dining leger under [facility] staff supervision. lap tray in place, and body alarm activated for safety. Continue with POC as able. TONEY Ayala/Manuel
[2020-01-01 07:47] VITALS: BP 141/76
--- NOTE | 2020-01-01 08:30 | NUR ---
Treatment Plan meeting was held this a.m. with Dr. Paez via telephone, EMAIL ENGINEER Mar, RN, AT, CELL POURER-S and Administrative Asst in attendance. Plan for discharge Tuesday. Pt. will return to [place] at discharge. Spoke with Velma Javier this a.m. from [place] and notified her of plans to discharge tomndrow.
--- NOTE | 2020-01-01 10:54 | NUR ---
DR HEMPHILL ON UNIT TO ASSESS PATIENT, UPDATE PROVIDED.
--- NOTE | 2020-01-01 12:30 | NUR ---
P: RESISTIVE WITH STAFF PROVIDING HANDS ON CARE. PATIENT ATTEMPTED TO PUT SELF OF FLOOR. 4 PERSON ASSIST TO STANDING POSITION. PATIENT AMBULATED WITH NURSE TO BATHROOM FOR TOILETING NEEDS AND SKIN ASSESSMENT. 2-3 ASSIST PROVIDED DUE TO AGGRESSION. AFTER TOILETING NEEDS. PATIENT ASSISTED INTO DINING ROOM WITH OTHER PATIENT. PATIENT GRABBING TOWARDS ANOTHER PATIENT WITH CONFUSION. PATIENT OBSERVED TALKING TO SELF WITH EYES CLOSED. PATIENT REMAINS MUTE AND WITHDRAWN THROUGHOUT THE DAY. I: ONE ON ONE, REDIRECTION/ORIENTATION, REMOVED FROM DINING ROOM TO QUIET ROOM WITH LOW STIMULI. R: PATIENT IN QUIET ROOM, EFFECTIVE. PATIENT IS ALERT TO SELF WITH CONFUSION. LONG/SHORT TERM MEMORY DEFICITS. NO VOICED HI/SI OR PAIN. POSSIBLE RESPONDING TO INTERNAL STIMULI-TALKING TO UNSEEN OTHERS WITH EYES CLOSED. PATIENT SLEEPING THIS MORNING IN DEEP SLEEP AND DID NOT TAKE MORNING MEDIICATION. Q 15 MINUTE SAFETY CHECKS MAINTAINED. LEVEL OF ASSISTANCE VARIES DUE TO PATIENT MOOD CHANGES/AGGRESSION. INCONTINENT OF BOWEL AND BLADDER. SET UP FOR MEALS. INTAKES VARIES DEPENDING ON IF PATIENT IS AWAKE. PATIENT DID NOT PARTICIPATE IN GROUP SESSIONS OR REMAINS MUTE/SLEEPING WHILE MOVIE WAS ON THIS MORNING. P: CONTINUE TO MONITOR FOR AGGRESSION, MEDICATION COMPLAINCE, MEAL INTAKE AND ALLOWING STAFF TO PROVIDE CARE OF DAILY NEEDS. PROVIDE ONE ON ONE, REDIRECTION/ORIENTATION, PROVIDE SNACK/DRINK AND RENDERING TOILETING NEED; AND CHANGE OF ENVIRONMENT WITH LOW STIMULI.
--- NOTE | 2020-01-01 14:22 | NUR ---
Orders received from Dr. Paez to consult Hospice for End Stage Dementia/Alzheimers Disease. Will reach out to [facility].
--- NOTE | 2020-01-01 14:33 | NUR ---
Spoke with Pt. Daughter Diane who is receptive to Pt. having Hospice Services at [place] due to End Stage Dementia/Alzheimers and Failure to Thrive with No preference for specific agency. [facility] is contracted with [facility] and Pt. daughter is receptive that. Referral Faxed to [place] for Review.
--- NOTE | 2020-01-01 15:44 | NUR ---
PM GROUP PT DID NOT ATTEND AFTERNOON GROUP THERAPY. PT WAS IN BED RESTING.
--- NOTE | 2020-01-01 16:10 | NUR ---
Shift chart check completed.
[2020-01-01 19:39] VITALS: BP 144/78
--- NOTE | 2020-01-02 01:15 | NUR ---
P-AGITATED, AGGRESSIVE, CONFUSION I-REDIRECTION WITH 1:1 THERAPEUTIC INTERVENTIONS AND PRESENT REALITY. EDUCATE AND ENCOURAGE MEDICATION COMPLIANCE R-PATIENT NONCOMPLIANT WITH MEDICATON AT HS. PATIENT PROVIDED NOURISHMENT AND FLUIDS AT HS. PATIENT THROWING FOOD AND FLUIDS AROUND AT HS. FLUIDS AND FOOD REMOVED FROM PATIENT AT THIS TIME. PATIENT AGITATED AND RESTLESS. PATIENT GRABBING ON STAFF MEMBERS. PATIENT STRIKING OUT AND USING VULGAR LANGUAGE. PATIENT AGGRESSIVE AND AGITATED WITH NURSING STAFF. SECURITY ON UNIT X 1. DR BERRY CALLED TO SEE IF ATIVAN CAN BE RENEWED. ATIVAN IM ADMINISTERED WITH EFFECTIVE RESULTS. PATIENT WITH NO HALLUCINATIONS OR DELUSIONS. PATIENT WITH NO HOMICIDAL OR SUICIDAL IDEATIONS. P-CONTINUE TO ENCOURAGE MEDICATION COMPLIANCE, CONTINUE TO PRESENT REALITY, ENCOURAGE GROUP THERAPY WHILE AWAKE
--- NOTE | 2020-01-02 06:45 | NUR ---
PATIENT SLEPT 4 HOURS OF INTERRUPTED SLEEP THROUGHOUT SHIFT. Q 15 MINUTE CHECKS MAINTAINED. 24 HR chart check completed.
--- NOTE | 2020-01-02 07:05 | NUR ---
PHYSICAL THERAPY Patient seen this am for therapy visit and was sitting up in activity room Tisha chair upon therapist arrival. Patient identified by name / and joined by OT ortho assistant for observation only this session. Patient was mostly non verbal this morning, voicing several "grunt" sounds when receiving v/c to focus on task while transfering sit to stand, CGA x 1. 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 Patient becomes easily agitated with several bouts of impulsive behaviour as he became confused on where he wanted to walk to. Patient returned to his Tisha chair in activity room with lap tray and body alarm, remaining under [facility] staff Supervision. Will continue per POC as tolerated, total treatment time 13 minutes. Getachew Stallings, ABORIGINAL COMMUNITY COUNCIL MEMBER
--- NOTE | 2020-01-02 07:20 | NUR ---
OT NOTE Prior to coming to the floor spoke with nursing staff and reported that therapy was coming to treat this pt. Nurse gave approval. Pt was seen this A.M. 1:1 for 20 minute OT session with ELECTRICAL EXPERIMENTAL MECHANIC and nursing staff present for observation only. Upon arrival pt was sitting upright in the nikolas chair in the dining leger. Pt identified by name and on wristband and had no complaints at this time. Sit to stand completed from chair level with CGA hand held. Upon inital rise pt had one LOB that required Lisa to correct. Functional mobility completed from the dining leger to the quiet room with Lisa hand held with bouts of unsteady stance. Pt was able to tolerate aprox 3 minutes of activity before sitting due to fatigue. Once seated pt completed BUE AAROM over all planes for 1 X 10 to increase and restore maximum functional use. Pt was left sitting upright in nikolas chair in the dining leger with lap tray in place, body alarm activated, and under [facility] staff supervision. Continue with POC as able. ANTOINE Ayala
[2020-01-02 07:32] VITALS: BP 133/65
--- NOTE | 2020-01-02 08:30 | NUR ---
Treatment Plan meeting was held this a.m. with NOLAN Manuel RN, AT and Mechanical Product Engineer in attendance. Plan for discharge today. Pt. will return to [facility]. [facility] has accepted Pt. upon return to Facility. They will be at [place] today around 3:30 to admit Pt. Transportation arranged with [facility] to transport with sweet pickled fruit maker time 2:00 p.m. Behavioral Health Nursing Staff is aware of supervisor fertilizer processing time. Call placed to Pt. daughter Diane [phone] to notify of sweet pickled fruit maker time. Spoke to daughter yesterday and she is receptive to Hospice and Discharge today. All aftercare services provided at the facility.
--- NOTE | 2020-01-02 08:40 | NUR ---
SPOKE WITH DR KERNS AND ADVISED OF PT DISCHARGE FOR TODAY AND MEDICAL MEDS NEEDING COMPLETED.
--- NOTE | 2020-01-02 09:04 | NUR ---
P: COMFUSION, IRRITABILITY. I: 1:1 FOR EMOTIONAL SUPPORT. PROVIDE SPACE NEEDED. ALLOW PATIENT TO VERBALIZE FEELINGS. R: INEFFECTIVE. PATIENT HAS NOT SPOKEN OR PARTICIPATED IN ASSESSMENT THIS MORNING. PATIENT DOES GET IRRITATED WHEN ATTEMPTING TO GIVE MEDICATIONS OR ASSESS HIM. PATIENT IS SET UP FOR MEALS. POOR INTAKES WITH POOR FLUIDS. PATIENT IS IN NITHYA CHAIR AT THIS TIME. PATIENT IS NOT COMPLIANT WITH MEDICATION. ENCOURAGE PATIENT TO PARTICIPATE IN GROUP ACTIVITIES, MEDICATION COMPLIANCE AND INTERACTION WITH PEERS AND STAFF. P: WILL CONTINUE TO MONITOR FOR MOODS/BEHAVIORS. Q15 MINUTE SAFETY CHECKS MAINTAINED. WILL CONTINUE TO ENCOURAGE MED COMPLIANCE.
--- NOTE | 2020-01-02 09:20 | NUR ---
DR BOURNE ON UNIT TO ASSESS PATIENT, UPDATE PROVIDED.
[2020-01-02] MEDS ORDERED: RIVASTIGMINE1 EAC2 T (09:46)
[2020-01-02] MEDS ORDERED: B121000 MCG/1 IM (09:55)
[2020-01-02] MEDS ORDERED: MEMANTINE HCL10 MG PO (09:55)
[2020-01-02] MEDS ORDERED: LORAZEPAM2 MG PO (09:55)
[2020-01-02] MEDS ORDERED: INVEGA SUSTENN156 MG IM (09:55)
[2020-01-02] MEDS ORDERED: LORAZEPAM2 MG/1 M1 IM (09:55)
[2020-01-02] MEDS ORDERED: THORAZINE25 MG PO (09:55)
[2020-01-02] MEDS ORDERED: BENZTROPINE MESY2 MG PO (09:55)
--- NOTE | 2020-01-02 11:01 | NUR ---
Discharge Paperwork faxed to [facility].
--- NOTE | 2020-01-02 11:41 | NUR ---
AM GROUP PT WAS PRESENT FOR MORNING GROUP THERAPY SEATED IN A NITHYA CHAIR SLEEPING. PT WOKE A FEW TIMES, SAID A FEW WORDS AND WENT BACK TO SLEEP. TOWARDS THE END OF GROUP, PT WAS CONVERSING WITH A NURSE ABOUT MUSIC. PT EXHIBITED NO ADVERSE BEHAVIORS WHILE IN GROUP.
--- NOTE | 2020-01-02 12:14 | NUR ---
Patient is discharging today to [place] for LTC. Follow-up will be with Dr Paez, visiting psychiatrist. Upon arrival to [place], pt will also be admitted to hospice services. While at [facility], pt's aggressive behaviors improved. Pt did not interact with his peers and minimally with staff.
--- NOTE | 2020-01-02 12:34 | NUR ---
Discharge Paperwork faxed to [facility].
--- NOTE | 2020-01-02 13:30 | NUR ---
PATIENT MEDICATED PRIOR TO TRANSFER PER MARCY DAVILA NP.
--- NOTE | 2020-01-02 15:39 | NUR ---
PM GROUP PT DID NOT ATTEND AFTERNOON GROUP THERAPY. PT WAS READYING TO BE DISCHARGED FROM THE UNIT.
--- NOTE | 2020-01-02 17:06 | NUR ---
PATIENT DISCHARGED FROM UNIT. PATIENT STABLE AT TIME OF DISCHARGE. PATIENT DISCHARGED VIA STRETCHER, [facility] ATTENDANCE, AND SECURITY X 1. PATIENT LEFT WITH BELONGINGS AND AMBULANCE ATTENDANCE GIVEN DISCHARGE PACKET. PATIENT MEDICATION RETURNED TO PHARMACY
--- NOTE | 2020-01-03 13:57 | NUR ---
OCCUPATIONAL THERAPY CO-SIGN I approve of the Occupational Therapy notes written above. KRISS PIPER OTR/Manuel
--- NOTE | 2020-01-04 07:27 | NUR ---
PHYSICAL THERAPY CO-SIGN I approve of the Physical Therapy notes written above. Farzana Law PT
== END 2020-01-02 17:44 | disposition hospice, home (50) | DRG 883 ==
LOC: ED 12:40 → 3N 16:47
PROVIDERS: Internal Medicine; Nurse Practitioner Adult Health; Physician Assistant; Student in an Organized Health Care Education/Training Program; ADMIT Psychiatry & Neurology Psychiatry; ATTEND Psychiatry & Neurology Psychiatry
PROC: 0HBRXZZ Excision of Toe Nail, External Approach (ICD-10-PCS; principal; 2019-12-25)
DX: F63.81 Intermittent explosive disorder (principal); F32.9 Major depressive disorder, single episode, unspecified; F41.9 Anxiety disorder, unspecified; F25.0 Schizoaffective disorder, bipolar type; I48.91 Unspecified atrial fibrillation; E78.5 Hyperlipidemia, unspecified; F17.210 Nicotine dependence, cigarettes, uncomplicated; I50.9 Heart failure, unspecified; F01.50 Vascular dementia, unspecified severity, without behavioral disturbance, psychotic disturbance, mood disturbance, and anxiety; D53.9 Nutritional anemia, unspecified; E83.51 Hypocalcemia; R45.1 Restlessness and agitation; I70.90 Unspecified atherosclerosis; E56.9 Vitamin deficiency, unspecified; I11.0 Hypertensive heart disease with heart failure; B35.1 Tinea unguium; R41.9 Unspecified symptoms and signs involving cognitive functions and awareness; Z20.828 Contact with and (suspected) exposure to other viral communicable diseases; Z86.73 Personal history of transient ischemic attack (TIA), and cerebral infarction without residual deficits